=== PATIENT | male | born 1965 | race Caucasian/White ===

== ENCOUNTER 2020-07-08 08:24 | Day surgery (SDC) | payer OTHER ==
[~2020-07-08 08:24] MED LIST: Lactated Ringers 1,000 ML IV SCH
[2020-07-08] MEDS ORDERED: fentaNYL 100 MCG/2 ML SDV ONE (09:42)
[2020-07-08] MEDS ORDERED: Propofol 200 MG/20 ML SDV ONE ×2 (09:42→10:21)
[2020-07-08] MEDS ORDERED: Midazolam 1 MG/ML 2 ML SDV ONE (09:42)
[2020-07-08 11:21] VITALS: BP 122/83; PULSE 64
--- NOTE | 2020-07-09 07:46 | OR ---
PREOPERATIVE DIAGNOSIS: Positive FIT test POSTOPERATIVE DIAGNOSIS: Positive FIT test. PROCEDURE PERFORMED: Colonoscopy with polypectomy. PROCEDURE IN DETAIL: This was done in the endoscopy suite. Sedation was given per Anesthesia. He was placed in the left lateral position. First, a rectal exam was done and was normal. Scope was introduced in the rectum, slowly advanced to the rectum, sigmoid, descending, transverse, and ascending colon until the cecum was reached. Upon reaching the cecum, scope was slowly withdrawn with normal mucosal surfaces on the way out. No immediate mucosal abnormalities, lesions, or polyps were noted until approximately 50 cm where a polyp was found and removed by hot loop forceps. He also had moderate sigmoid diverticulosis. FINAL DIAGNOSES: 1. Polyp at 50 cm. 2. Sigmoid diverticulosis. BKD: 07/08/2020 10:28:09 MODL: 07/08/2020 16:07:54 /[id number]
== END 2020-07-08 11:57 | disposition home or self-care (01) ==
LOC: VM.SDS 08:24
PROVIDERS: ATTEND Surgery
DX: R19.5 Other fecal abnormalities (principal); D12.0 Benign neoplasm of cecum; K57.30 Diverticulosis of large intestine without perforation or abscess without bleeding; G47.33 Obstructive sleep apnea (adult) (pediatric)
CPT/HCPCS: 00811; J2250; J2704; J3010; J7120

== ENCOUNTER 2023-10-06 11:34 | Emergency (ER) | payer OTHER ==
[2023-10-06 13:00] VITALS: BP 144/59; PULSE 61
== END 2023-10-06 12:00 | disposition home or self-care (01) ==
LOC: VM.ED 11:34
DX: G51.0 Bell's palsy (principal); I10 Essential (primary) hypertension; Z79.899 Other long term (current) drug therapy
CPT/HCPCS: 99283